=== PATIENT | male | born 1950 | race Caucasian/White ===

== ENCOUNTER 2017-03-30 09:47 | Day surgery (SDC) | payer MEDICARE, BC ==
[~2017-03-30 09:47] MED LIST: Midazolam 1 MG/ML 2 ML SDV ONE; Propofol 200 MG/20 ML SDV ONE; fentaNYL 100 MCG/2 ML SDV ONE
[2017-03-30] MEDS ORDERED: Sodium Chloride 0.9% 1,000 ML IV SCH (10:45)
[2017-03-30 12:03] VITALS: BP 162/95
--- NOTE | 2017-03-30 12:19 | OR ---
DATE OF PROCEDURE: 03/30/2017 PROCEDURE: Colonoscopy. FINDINGS: Ascending colon polyp, approximately 2 cm, completely removed using hot snare. COMPLICATIONS: None. 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 PREOPERATIVE DIAGNOSIS: Screening colonoscopy. POSTOPERATIVE DIAGNOSIS: Screening colonoscopy. RISK: Risks, benefits, alternatives, and limitations, including, but not limited to infection, bleeding, and perforation, false-positive and false-negative exams were explained to the patient, and he wished to proceed. PROCEDURE IN DETAIL: The patient was placed in left lateral decubitus position. Digital rectal exam was performed without abnormality. The scope was introduced and advanced atraumatically to the ileocecal valve. The scope was brought back to the ascending, transverse, descending colon and retroflexed. The aforementioned ascending colon polyp was first biopsied and completely removed using hot snare. No abnormalities on retroflexion. The patient tolerated the procedure well. Aldair Tripp MD /[id number]
== END 2017-03-30 12:30 | disposition home or self-care (01) ==
LOC: JP.SDS 09:47
PROVIDERS: ATTEND Surgery
DX: Z12.11 Encounter for screening for malignant neoplasm of colon (principal); D12.2 Benign neoplasm of ascending colon; Z87.19 Personal history of other diseases of the digestive system; I10 Essential (primary) hypertension; E78.2 Mixed hyperlipidemia; R10.13 Epigastric pain; F10.10 Alcohol abuse, uncomplicated; E79.0 Hyperuricemia without signs of inflammatory arthritis and tophaceous disease; R73.03 Prediabetes; Z88.1 Allergy status to other antibiotic agents; Z88.2 Allergy status to sulfonamides; Z79.899 Other long term (current) drug therapy; Z87.891 Personal history of nicotine dependence
CPT/HCPCS: 45385; J2250; J2704; J3010; J7040; 88305

== ENCOUNTER 2017-06-19 19:38 | Emergency (ER) | payer MEDICARE, BC ==
[2017-06-19 19:54] VITALS: BP 146/84
--- NOTE | 2017-06-19 20:39 | EDM.PDOC ---
ED HPI GENERAL MEDICAL PROBLEM - General Chief Complaint: Skin Complaint Stated Complaint: RASH Time Seen by Provider: 06/19/17 20:26 Source of Information: Reports: Patient, Family, RN Notes Reviewed History Limitations: Reports: No Limitations - History of Present Illness INITIAL COMMENTS - FREE TEXT/NARRATIVE: 67-year-old gentleman presents emergency department day complaint of a rash, states the rash is been ongoing for about 24 hours and continues to a fall initially had some tongue swelling and difficulty swallowing however that is resolved and now his had bumps on his chest and arms it is quite itchy and they are changing in-state as well - Related Data Allergies Allergy/AdvReac Type Severity Reaction Status Date / Time azithromycin Allergy Cannot Verified 06/19/17 19:57 Remember Sulfa (Sulfonamide Allergy Rash Verified 06/19/17 19:57 Antibiotics) Home Meds: Home Meds Ascorbate Calcium [Vitamin C] 1,000 mg PO DAILY 04/15/14 [History] Gemfibrozil 600 mg PO BID 04/15/14 [History] Lovastatin [Mevacor] 20 mg PO DAILY 04/15/14 [History] Metoprolol Succinate [Toprol XL 100mg] 100 mg PO DAILY 04/15/14 [History] Multivitamin with Minerals [Multiple Vitamin] 1 tab PO DAILY 04/15/14 [History] Omeprazole 20 mg PO Q48H 04/15/14 [History] Lisinopril/Hydrochlorothiazide [Lisinopril-Hctz 20-25 mg Tab] 1 tab PO DAILY [History] Past Medical History HEENT History: Reports: Cataract, Other (See Below) Other HEENT History: tinnitis Cardiovascular History: Reports: High Cholesterol, Hypertension Respiratory History: Reports: Bronchitis, Recurrent Gastrointestinal History: Reports: Cholelithiasis, Colon Polyp, GERD Musculoskeletal History: Reports: Gout Neurological History: Reports: None Psychiatric History: Reports: None Endocrine/Metabolic History: Reports: Obesity/BMI 30+ Hematologic History: Reports: Blood Transfusion(s) Oncologic (Cancer) History: Reports: Other (See Below) Other Oncologic History: skin CA Dermatologic History: Reports: Other (See Below) Other Dermatologic History: skin CA - Past Surgical History HEENT Surgical History: Reports: Cataract Surgery GI Surgical History: Reports: Colonoscopy Neurological Surgical History: Reports: None Oncologic Surgical History: Reports: None Social & Family History - Tobacco Use Smoking Status *Q: Never Smoker Second Hand Smoke Exposure: No - Caffeine Use Caffeine Use: Reports: Coffee - Alcohol Use Days Per Week of Alcohol Use: 7 Number of Drinks Per Day: 4 Total Drinks Per Week: 28 - Recreational Drug Use Recreational Drug Use: No ED ROS GENERAL - Review of Systems Review Of Systems: See Below Constitutional: Reports: No Symptoms Skin: Reports: Pruritis, Rash, Erythema, Urticaria Neurological: Reports: No Symptoms ED EXAM, SKIN/RASH Exam: See Below Exam Limited By: No Limitations General Appearance: Alert, WD/WN, No Apparent Distress Respiratory/Chest: No Respiratory Distress, Lungs Clear, Normal Breath Sounds, No Accessory Muscle Use Cardiovascular: Regular Rate, Rhythm, No Murmur Skin: Warm, Dry, Intact, Rash, Other (Hives) Course - Vital Signs Last Recorded V/S: Last Vital Signs Temp 98.1 F 06/19/17 20:06 Pulse 91 06/19/17 20:06 Resp 20 06/19/17 20:06 BP 146/84 H 06/19/17 20:06 Pulse Ox 97 06/19/17 20:06 Departure - Departure Time of Disposition: 20:39 Disposition: Home, Self-Care 01 Condition: Good Clinical Impression: Urticaria - Discharge Information Referrals: Migel Bustamante MD [Primary Care Provider] - Additional Instructions: Take full course of steroids, use Benadryl as needed to help control symptoms, Please followup with your primary care provider in 3-5 days if not better, please call return to the emergency department with worsening of symptoms. - Assessment/Plan Plan: Assessment Acuity = acute Site and laterality = hives Etiology = unclear etiology Manifestations = pruritus Location of injury = Home Lab values = none Plan Prednisone 20 mg once day 3 days combination of Benadryl follow-up with primary care in 3-5 days if not better Patient was in agreement with the plan all questions were answered, they were instructed to return to the emergency department or call for worsening symptoms. This note was dictated using ROSTR voice recognition software please call with any questions.
== END 2017-06-19 20:48 | disposition home or self-care (01) ==
LOC: JP.ED 19:38
DX: L50.9 Urticaria, unspecified (principal); I10 Essential (primary) hypertension; E78.00 Pure hypercholesterolemia, unspecified; K21.9 Gastro-esophageal reflux disease without esophagitis; E66.9 Obesity, unspecified; Z85.828 Personal history of other malignant neoplasm of skin; Z98.49 Cataract extraction status, unspecified eye; Z79.899 Other long term (current) drug therapy; Z88.1 Allergy status to other antibiotic agents; Z88.2 Allergy status to sulfonamides; Z68.32 Body mass index [BMI] 32.0-32.9, adult
CPT/HCPCS: 99283

== ENCOUNTER 2020-07-16 08:00 | Day surgery (SDC) | payer BC, MEDICARE ==
[2020-07-16] MEDS ORDERED: Dextrose 5%-Lactated Ringers 1,000 ML IV SCH (08:30)
[2020-07-16] MEDS ORDERED: Propofol 200 MG/20 ML SDV ONE ×2 (08:48→09:35)
[2020-07-16] MEDS ORDERED: Midazolam 1 MG/ML 2 ML SDV ONE (08:48)
[2020-07-16] MEDS ORDERED: fentaNYL 100 MCG/2 ML SDV ONE (08:48)
[2020-07-16 10:51] VITALS: BP 183/98; PULSE 86
--- NOTE | 2020-07-27 12:28 | OR ---
DATE OF PROCEDURE: 07/16/2020 SURGEON: Tani Bull MD PREOPERATIVE DIAGNOSIS: History of colon polyps. POSTOPERATIVE DIAGNOSIS: Recurrent colon polyps x2. 1. Small ascending colon polyp. 2. Larger descending colon polyp. OPERATIVE PROCEDURES: 1. Flexible colonoscopy with polypectomy by snare technique x2 ([id number]). 2. Injection of Haley Ink in the submucosa adjacent to descending colon polypectomy site ([id number]). ANESTHESIA: IV sedation. INDICATION FOR PROCEDURE: A 70-year-old presenting with a followup colonoscopy plan based on previous history of colon polyps. Potential risks including bleeding and perforation were discussed, and the patient wishes to proceed. PROCEDURE IN DETAIL: The patient was taken to the operating room and placed in a left lateral decubitus position. IV sedation was administered, after which the initial digital rectal exam was performed and was unremarkable. Colonoscope was then passed into the rectum with retroflexion revealing uncomplicated hemorrhoidal columns. Scope was then eventually passed to the level of the cecum. Prep was quite good with only small amount of liquid stool being present. A small 5 mm polyp was located in the ascending colon. This was encircled at its base and removed by means of snare technique. A larger roughly 1.5 cm polyp was then encountered in the descending colon. This was also then encircled at its base and removed. This came out in somewhat of a piecemeal fashion. The remaining base of the polypectomy site was then cauterized further to attempt to minimize chances of any local recurrence at that site and this specimen likewise at this point grasped through the biopsy channel and retrieved. Scope was then placed back up into the area of the descending colon polyp and 4 mL of Haley Ink were injected submucosally to help identify that area should the pathology report come back showing malignancy. The scope was then withdrawn and the procedure was then concluded. Assuming that we are not dealing with a malignant change in the larger of these 2 polyps, the patient should likely undergo a repeat colonoscopy in 1 year due to the fairly extensive size of the polyp removed in the descending colon. Tani Bull MD /[id number]
== END 2020-07-16 11:00 | disposition home or self-care (01) ==
LOC: JP.SDS 08:00
PROVIDERS: ATTEND Surgery
DX: Z12.11 Encounter for screening for malignant neoplasm of colon (principal); D12.4 Benign neoplasm of descending colon; K64.9 Unspecified hemorrhoids; I10 Essential (primary) hypertension; K21.9 Gastro-esophageal reflux disease without esophagitis
CPT/HCPCS: 45381; 45385; 88305; J2250; J2704; J3010; J7121

== ENCOUNTER 2021-09-09 16:13 | Emergency (ER) | payer MEDICARE ==
[2021-09-09] MEDS ORDERED: Sodium Chloride 0.9% 10 ML Syringe FLUSH PRN (16:15)
[2021-09-09] MEDS ORDERED: methylPREDNISolone Sodium Succinate 125 MG/2 ML SDV IVPUSH ONE ×2 (16:16→17:52)
[2021-09-09 16:25] VITALS: PULSE 98
--- NOTE | 2021-09-09 16:42 | EDM.PDOC ---
ED HPI GENERAL MEDICAL PROBLEM - General Chief Complaint: Allergic Reaction Stated Complaint: MEDICAL VIA [place] Time Seen by Provider: 09/09/21 16:37 Source of Information: Reports: Patient History Limitations: Reports: No Limitations - History of Present Illness INITIAL COMMENTS - FREE TEXT/NARRATIVE: 2 days ago he was started back on lisinopril. He took his dose about noon and he laid down and when he got up from the nap he had a markedly swollen tongue. He did not have hives or other signs of a allergic reaction. Onset: Today, Sudden Duration: Hour(s): Location: Reports: Face Associated Symptoms: Reports: Other (pt is not feeling sob. ) - Related Data Allergies Allergy/AdvReac Type Severity Reaction Status Date / Time azithromycin Allergy Cannot Verified 09/09/21 16:19 Remember lisinopril Allergy Swelling Verified 09/09/21 16:28 Sulfa (Sulfonamide Allergy Rash Verified 09/09/21 16:19 Antibiotics) Home Meds: Home Meds Gemfibrozil 600 mg PO BID 04/15/14 [History] Lovastatin [Mevacor] 20 mg PO DAILY 04/15/14 [History] Metoprolol Succinate [Toprol XL 100mg] 100 mg PO DAILY 04/15/14 [History] Multivitamin with Minerals [Multiple Vitamin] 1 tab PO DAILY 04/15/14 [History] Omeprazole 20 mg PO Q48H 04/15/14 [History] Lisinopril/Hydrochlorothiazide [Lisinopril-Hctz 20-25 mg Tab] 1 tab PO DAILY 06/19/17 [History] Cinnamon Bark [Cinnamon] 500 mg PO DAILY 07/14/20 [History] Potassium Chloride 10 meq PO DAILY 07/14/20 [History] Ascorbate Calcium [Vitamin C] 500 mg PO DAILY 09/09/21 [History] Digoxin 250 mcg PO DAILY 09/09/21 [History] Diltiazem [Cardizem CD] 120 mg PO DAILY 09/09/21 [History] Latanoprost/Pf [Latanoprost 0.005% Eye Drop] 1 drop EYEBOTH BEDTIME 09/09/21 [History] Magnesium Sulfate 400 mg PO BID 09/09/21 [History] Past Medical History HEENT History: Reports: Cataract, Other (See Below) Other HEENT History: tinnitis Cardiovascular History: Reports: High Cholesterol, Hypertension Respiratory History: Reports: Bronchitis, Recurrent Gastrointestinal History: Reports: Cholelithiasis, Colon Polyp, GERD Musculoskeletal History: Reports: Gout Neurological History: Reports: None Psychiatric History: Reports: None Endocrine/Metabolic History: Reports: Obesity/BMI 30+ Hematologic History: Reports: Blood Transfusion(s) Oncologic (Cancer) History: Reports: Other (See Below) Other Oncologic History: skin CA Dermatologic History: Reports: Other (See Below) Other Dermatologic History: skin CA - Past Surgical History HEENT Surgical History: Reports: Cataract Surgery GI Surgical History: Reports: Colonoscopy Neurological Surgical History: Reports: None Social & Family History - Family History Family Medical History: No Pertinent Family History - Tobacco Use Tobacco Use Status *Q: Never Tobacco User - Caffeine Use Caffeine Use: Reports: None - Alcohol Use Days Per Week of Alcohol Use: 3 Number of Drinks Per Day: 3 Total Drinks Per Week: 9 - Recreational Drug Use Recreational Drug Use: No ED ROS ALLERGIC REACTION - Review of Systems Review Of Systems: See Below Constitutional: Reports: No Symptoms HEENT: Reports: Other (marked swelling of his tongue. ) Respiratory: Reports: No Symptoms Cardiovascular: Reports: No Symptoms Endocrine: Reports: No Symptoms GI/Abdominal: Reports: No Symptoms : Reports: No Symptoms Musculoskeletal: Reports: No Symptoms Skin: Reports: No Symptoms ED EXAM GENERAL NO PERIP PULSE - Physical Exam Exam: See Below Text/Narrative:: pt arrived with a markedly swollen tongue. He was restarted on lisinopril 2 days ago. He took his dose anoon. laid down for a nap and got up with a swollen tongue. Exam Limited By: No Limitations General Appearance: Alert, Anxious, Moderate Distress, Other (pt does not feel sob. ) Ears: Normal TMs Nose: Normal Inspection Throat/Mouth: Other ( tongue is parkedly swolen distally) Head: Atraumatic Neck: Normal Inspection Cardiovascular: Regular Rate, Rhythm GI/Abdominal: Soft, Non-Tender (Male) Exam: Deferred Rectal (Males) Exam: Deferred Back Exam: Normal Inspection Extremities: Normal Inspection Course - Vital Signs Last Recorded V/S: Last Vital Signs Temp 36.8 C 09/09/21 16:22 Pulse 98 09/09/21 16:22 Resp 21 H 09/09/21 17:41 BP 133/65 09/09/21 17:41 Pulse Ox 92 L 09/09/21 17:41 - Orders/Labs/Meds Orders: Active Orders 24 hr Category Date Time Status Sodium Chloride 0.9% [Saline Flush] Med 09/09/21 16:15 Active 10 ml FLUSH ASDIRECTED PRN Saline Lock Insert [OM.PC] Routine Oth 09/09/21 16:15 Ordered Medication Orders Sodium Chloride (Sodium Chloride 0.9% 10 Ml Syringe) 10 ml FLUSH ASDIRECTED PRN PRN Reason: Keep Vein Open Last Admin: 09/09/21 16:36 Dose: 10 ml Documented by: SALVADOR Labs: Laboratory Tests 09/09/21 09/09/21 Range/Units 16:15 16:15 WBC 12.4 H (4.5-11.0) K/uL RBC 3.85 L (4.30-5.90) M/uL Hgb 12.8 (12.0-15.0) g/dL Hct 36.5 L (40.0-54.0) % MCV 95 (80-98) fL MCH 33 H (27-31) pg MCHC 35 (32-36) % Plt Count 238 (150-400) K/uL Neut % (Auto) 59.7 (36-66) % Lymph % (Auto) 25.6 (24-44) % Victoria % (Auto) 11.0 H (2-6) % Eos % (Auto) 3.4 (2-4) % Baso % (Auto) 0.3 (0-1) % Sodium 135 L (140-148) mmol/L Potassium 3.1 L (3.6-5.2) mmol/L Chloride 100 (100-108) mmol/L Carbon Dioxide 20 L (21-32) mmol/L Anion Gap 18.1 H (5.0-14.0) mmol/L BUN 11 (7-18) mg/dL Creatinine 1.0 (0.8-1.3) mg/dL Est Cr Clr Drug Dosing 64.60 mL/min Estimated GFR (MDRD) > 60 (>60) Glucose 162 H (74-106) mg/dL Calcium 8.7 (8.5-10.1) mg/dL Meds: Medications Generic Name Dose Route Start Last Admin Trade Name Freq PRN Reason Stop Dose Admin Sodium Chloride 10 ml 09/09/21 16:15 09/09/21 16:36 Sodium Chloride 0.9% 10 Ml Syringe FLUSH 10 ml ASDIRECTED PRN Administration Keep Vein Open Discontinued Medications Generic Name Dose Route Start Last Admin Trade Name Jasmin PRN Reason Stop Dose Admin Diphenhydramine HCl 25 mg 09/09/21 16:53 09/09/21 17:01 Diphenhydramine 50 Mg/Ml Sdv IVPUSH 09/09/21 16:54 25 mg ONETIME ONE Administration Methylprednisolone Sodium Succinate 125 mg 09/09/21 16:16 09/09/21 16:33 Methylprednisolone Sodium Succinate 125 Mg/2 Ml Sdv IVPUSH 09/09/21 16:17 125 mg ONETIME ONE Administration Departure - Departure Time of Disposition: 17:53 Disposition: Home, Self-Care 01 Condition: Fair Clinical Impression: Angioedema, Hypokalemia - Discharge Information Referrals: Migel Bustamante MD [Primary Care Provider] - Forms: ED Department Discharge Care Plan Goals: use iced solutions to help with swelling, at 9 pm take benadryl 50 mg, stay awake tonight until swelling is better. stop lisinopril. restart hydraazine as previously ordered. Appt with Dr Bustamante in next few days to reevaluate bp meds. Sepsis Event Note (ED) - Evaluation Sepsis Screening Result: No Definite Risk - Focused Exam Vital Signs: Vital Signs Temp Pulse Resp BP Pulse Ox 09/09/21 17:41 21 H 133/65 92 L 09/09/21 17:11 20 142/68 H 92 L 09/09/21 16:41 24 H 147/58 H 93 L 09/09/21 16:22 36.8 C 98 21 H 185/70 H 97 09/09/21 16:17 36.8 C 98 185/70 H 97 - My Orders Last 24 Hours: My Active Orders 09/09/21 16:15 Sodium Chloride 0.9% [Saline Flush] 10 ml FLUSH ASDIRECTED PRN Saline Lock Insert [OM.PC] Routine - Assessment/Plan Last 24 Hours: My Active Orders 09/09/21 16:15 Sodium Chloride 0.9% [Saline Flush] 10 ml FLUSH ASDIRECTED PRN Saline Lock Insert [OM.PC] Routine
[2021-09-09] MEDS ORDERED: diphenhydrAMINE 50 MG/ML SDV IVPUSH ONE (16:53)
[2021-09-09 17:41] VITALS: BP 133/65
== END 2021-09-09 18:15 | disposition home or self-care (01) ==
LOC: JP.ED 16:13
DX: T78.3XXA Angioneurotic edema, initial encounter (principal); E87.6 Hypokalemia; E78.00 Pure hypercholesterolemia, unspecified; I10 Essential (primary) hypertension; K21.9 Gastro-esophageal reflux disease without esophagitis; E66.9 Obesity, unspecified; Z68.29 Body mass index [BMI] 29.0-29.9, adult; Z88.1 Allergy status to other antibiotic agents; Z88.8 Allergy status to other drugs, medicaments and biological substances; Z88.2 Allergy status to sulfonamides; Z79.899 Other long term (current) drug therapy
CPT/HCPCS: 36415; 80048; 85025; 96374; 96375; 96376; 99285; J1200; J2930

== ENCOUNTER 2021-09-19 17:54 | Emergency (ER) | payer MEDICARE ==
[2021-09-19 18:31] VITALS: BP 162/75; PULSE 83
[2021-09-19] MEDS ORDERED: methylPREDNISolone Sodium Succinate 125 MG/2 ML SDV IM ONE (18:59)
--- NOTE | 2021-09-19 19:00 | EDM.PDOC ---
ED HPI GENERAL MEDICAL PROBLEM - General Chief Complaint: Allergic Reaction Stated Complaint: FACE IS SWOLLEN Time Seen by Provider: 09/19/21 18:55 Source of Information: Reports: Patient, Family History Limitations: Reports: No Limitations - History of Present Illness INITIAL COMMENTS - FREE TEXT/NARRATIVE: 71-year-old male who was developed angioedema of the right buccal mucosa and left lower lip. He had the same instance within the last 2 weeks, his tongue was more involved that time and he stopped his lisinopril. He has not had an episode until 3 hours ago when he woke from a nap he noticed the swelling started. He took 50 mg of Benadryl and came in. It is still significantly swollen around the left cheek, it is nontender but feels "tight". No difficulty breathing, the left lower lip is swollen but the tongue is not involved at this time. Onset: Sudden Duration: Hour(s): (3 hours) Location: Reports: Face (Left face and left lower lip) Quality: Reports: Pressure Worsens with: Reports: None Associated Symptoms: Reports: No Other Symptoms - Related Data Allergies Allergy/AdvReac Type Severity Reaction Status Date / Time azithromycin Allergy Cannot Verified 09/19/21 18:58 Remember lisinopril Allergy Swelling Verified 09/19/21 18:58 Sulfa (Sulfonamide Allergy Rash Verified 09/19/21 18:58 Antibiotics) Home Meds: Home Meds Gemfibrozil 600 mg PO BID 04/15/14 [History] Lovastatin [Mevacor] 20 mg PO DAILY 04/15/14 [History] Metoprolol Succinate [Toprol XL 100mg] 100 mg PO DAILY 04/15/14 [History] Multivitamin with Minerals [Multiple Vitamin] 1 tab PO DAILY 04/15/14 [History] Omeprazole 20 mg PO Q48H 04/15/14 [History] Cinnamon Bark [Cinnamon] 500 mg PO DAILY 07/14/20 [History] Potassium Chloride 10 meq PO DAILY 07/14/20 [History] Ascorbate Calcium [Vitamin C] 500 mg PO DAILY 09/09/21 [History] Digoxin 250 mcg PO DAILY 09/09/21 [History] Diltiazem [Cardizem CD] 120 mg PO DAILY 09/09/21 [History] Latanoprost/Pf [Latanoprost 0.005% Eye Drop] 1 drop EYEBOTH BEDTIME 09/09/21 [History] Magnesium Sulfate 400 mg PO BID 09/09/21 [History] Past Medical History HEENT History: Reports: Cataract, Other (See Below) Other HEENT History: tinnitis Cardiovascular History: Reports: High Cholesterol, Hypertension Respiratory History: Reports: Bronchitis, Recurrent Gastrointestinal History: Reports: Cholelithiasis, Colon Polyp, GERD Musculoskeletal History: Reports: Gout Neurological History: Reports: None Psychiatric History: Reports: None Endocrine/Metabolic History: Reports: Obesity/BMI 30+ Hematologic History: Reports: Blood Transfusion(s) Oncologic (Cancer) History: Reports: Other (See Below) Other Oncologic History: skin CA Dermatologic History: Reports: Other (See Below) Other Dermatologic History: skin CA - Past Surgical History HEENT Surgical History: Reports: Cataract Surgery GI Surgical History: Reports: Colonoscopy Neurological Surgical History: Reports: None Social & Family History - Family History Family Medical History: No Pertinent Family History - Caffeine Use Caffeine Use: Reports: None ED ROS ALLERGIC REACTION - Review of Systems Review Of Systems: See Below Constitutional: Denies: Fever, Chills HEENT: Denies: Throat Pain, Throat Swelling Respiratory: Denies: Shortness of Breath Cardiovascular: Denies: Chest Pain GI/Abdominal: Denies: Nausea, Vomiting Skin: Reports: Other (Has some hyperemia of the forearms after rubbing her lotion to reduce skin cancer changes.) Neurological: Reports: No Symptoms ED EXAM GENERAL NO PERIP PULSE - Physical Exam Exam: See Below Exam Limited By: No Limitations General Appearance: Alert, No Apparent Distress Eye Exam: Bilateral Eye: Normal Inspection Throat/Mouth: Other (Significant edema is present in the left buccal mucosa, the left face and to the left lower lip. The tongue and posterior pharynx are not involved) Head: Atraumatic Neck: Supple, Non-Tender Respiratory/Chest: Lungs Clear Cardiovascular: Regular Rate, Rhythm GI/Abdominal: Soft, Non-Tender Course - Vital Signs Last Recorded V/S: Last Vital Signs Temp 97.9 F 09/19/21 18:54 Pulse 83 09/19/21 18:54 Resp 16 09/19/21 18:54 BP 162/75 H 09/19/21 18:54 Pulse Ox 96 09/19/21 18:54 - Orders/Labs/Meds Meds: Medications Discontinued Medications Generic Name Dose Route Start Last Admin Trade Name Freq PRN Reason Stop Dose Admin Methylprednisolone Sodium Succinate 125 mg 09/19/21 18:59 09/19/21 19:39 Methylprednisolone Sodium Succinate 125 Mg/2 Ml Sdv IM 09/19/21 19:00 125 mg ONETIME ONE Administration - Re-Assessments/Exams Free Text/Narrative Re-Assessment/Exam: 09/19/21 19:07 This patient is experiencing another episode of angioedema. He is not on any anti-inflammatories and has stopped his lisinopril. He is not on antibiotics. He was given 125 mg of IM Solu-Medrol and will be discharged with a Medrol Dosepak but may need to talk to his doctor about testing. We do not have danazol available for treatment. He will return if worsening. Departure - Departure Time of Disposition: 19:44 Disposition: Home, Self-Care 01 Clinical Impression: Angioedema Qualifiers: Encounter type: initial encounter Qualified Code(s): T78.3XXA - Angioneurotic edema, initial encounter - Discharge Information Instructions: Allergies, Adult Referrals: Migel Bustamante MD [Primary Care Provider] - Forms: ED Department Discharge Care Plan Goals: Start Medrol Dosepak tomorrow morning and take until swelling has resolved even if it is only a few doses, your swelling may be gone by tomorrow. Consider an appointment at the clinic to get testing to see if they can determine what is causing this. Cold temperatures can help reduce swelling such as ice packs to the face or drinks with crushed ice. Sepsis Event Note (ED) - Evaluation Sepsis Screening Result: No Definite Risk - Focused Exam Vital Signs: Vital Signs Temp Pulse Resp BP Pulse Ox 09/19/21 18:54 97.9 F 83 16 162/75 H 96 09/19/21 18:27 97.9 F 83 16 162/75 H 96
== END 2021-09-19 19:50 | disposition home or self-care (01) ==
LOC: JP.ED 17:54
DX: T78.3XXA Angioneurotic edema, initial encounter (principal); M10.9 Gout, unspecified; K21.9 Gastro-esophageal reflux disease without esophagitis; E66.9 Obesity, unspecified; Z68.29 Body mass index [BMI] 29.0-29.9, adult; Z88.2 Allergy status to sulfonamides; Z88.1 Allergy status to other antibiotic agents; Z88.8 Allergy status to other drugs, medicaments and biological substances; Z79.899 Other long term (current) drug therapy
CPT/HCPCS: 96372; 99283; J2930

== ENCOUNTER 2024-06-23 16:45 | Emergency (ER) | payer OTHER, MEDICARE ==
[2024-06-23 18:31] LABS: BASOPHILS ABSOLUTE AUTO 0.06 K/uL (0.00-0.10); BASOPHILS PERCENT AUTO 0.6 % (0.1-1.3); EOSINOPHILS ABSOLUTE AUTO 0.02 K/uL (0.00-0.40); EOSINOPHILS PERCENT AUTO 0.2 % (0.0-5.4); HEMATOCRIT 39.9 % (38.4-49.7); HEMOGLOBIN 14.3 g/dL (12.9-16.9); IMMATURE GRAN ABSOLUTE AUTO 0.03 K/uL (0.00-0.23); IMMATURE GRAN PERCENT AUTO 0.3 % (0.0-0.7); LYMPHOCYTES ABSOLUTE AUTO 0.94 K/uL (0.8-3.3); LYMPHOCYTES PERCENT AUTO 9.8 % (11.4-47.7); MEAN CORPUSCULAR HEMOGLOBIN 31.9 pg (31.6-35.5); MEAN CORPUSCULAR HGB CONC 35.8 g/dL (31.6-35.5); MEAN CORPUSCULAR VOLUME 89.1 fL (81.4-99.0); MONOCYTES ABSOLUTE AUTO 1.55 K/uL (0.20-0.90); MONOCYTES PERCENT AUTO 16.1 % (3.3-12.6); NEUTROPHILS ABSOLUTE AUTO 7.04 K/uL (1.0-7.6); PLATELET COUNT,PLT 194 K/uL (130-375); RED BLOOD CELL COUNT 4.48 M/uL (4.14-5.76); WHITE BLOOD CELL COUNT,WBC 9.6 K/uL (3.2-11.0)
[2024-06-23 18:50] LABS: APPEARANCE,URINE CLEAR (CLEAR); BACTERIA,URINE FEW; BILIRUBIN,URINE NEGATIVE (NEGATIVE); COLOR,URINE YELLOW (YELLOW); EPITHELIAL CELLS,URINE RARE; GLUCOSE,URINE NEGATIVE (NEGATIVE); KETONES,URINE NEGATIVE (NEGATIVE); LEUKOCYTE ESTERASE,URINE NEGATIVE (NEGATIVE); MUCUS,URINE FEW; NITRITE,URINE NEGATIVE (NEGATIVE); OCCULT BLOOD,URINE TRACE-INTACT (NEGATIVE); PH,URINE 7.5 (5.0-8.0); PROTEIN,URINE >=300 mg/dL (NEGATIVE); UROBILINOGEN,URINE 0.2 EU/dL (0.2-1.0); WBC,URINE 0-5 (0-5)
[2024-06-23 18:51] LABS: AMORPHOUS SEDIMENT,URINE NOT SEEN
[2024-06-23 18:52] LABS: BLOOD UREA NITROGEN,BUN 15 mg/dL (7-18); CALCIUM 9.7 mg/dL (8.5-10.1); CARBON DIOXIDE,CO2 21 mmol/L (21-32); CHLORIDE,CL 100 mmol/L (100-108); CREATININE 1.2 mg/dL (0.8-1.3); ESTIMATED GFR 63 mL/min (>60); GLUCOSE RANDOM 125 mg/dL (74-106); POTASSIUM,K 3.7 mmol/L (3.6-5.2); SODIUM,NA 136 mmol/L (140-148)
[2024-06-23 18:56] LABS: ANION GAP 18.7 mmol/L (5.0-14.0)
[2024-06-23] MEDS: Sodium Chloride 0.9% 1,000 ML IV SCH ×2 (19:02→20:56)
[2024-06-23 19:15] LABS: INFLUENZA A NAA NEGATIVE (NEGATIVE); INFLUENZA B NAA NEGATIVE (NEGATIVE); RESPIRATORY SYNCYTIAL VIR NAA NEGATIVE (NEGATIVE)
[2024-06-23 19:18] LABS: CORONAVIRUS COVID-19 NAA POSITIVE (NEGATIVE)
[2024-06-23] MEDS: Acetaminophen 500 MG Tab PO ONE (19:30)
[2024-06-23] MEDS: cefTRIAXone 2 GM in Sodium Chloride 0.9% 50 ML IV ONE (20:23)
[2024-06-23 22:06] VITALS: BP 131/62; PULSE 104
== END 2024-06-23 22:05 | disposition home or self-care (01) ==
LOC: JP.ED 16:45
DX: U07.1 COVID-19 (principal); I10 Essential (primary) hypertension; E78.00 Pure hypercholesterolemia, unspecified; E66.9 Obesity, unspecified; Z88.1 Allergy status to other antibiotic agents; Z88.2 Allergy status to sulfonamides; Z88.8 Allergy status to other drugs, medicaments and biological substances; Z79.899 Other long term (current) drug therapy; Z68.31 Body mass index [BMI] 31.0-31.9, adult
CPT/HCPCS: 0241U; 36415; 71046; 80048; 81001; 83605; 84145; 85025; 87040; 93005; 96360; 96361; 99284; A9270; J7030

== ENCOUNTER 2024-07-02 15:20 | Emergency (ER) | payer OTHER, MEDICARE ==
[2024-07-02 16:09] VITALS: BP 171/87
[2024-07-02] MEDS: cloNIDine 0.1 MG Tab PO ONE (16:09)
[2024-07-02 16:15] VITALS: PULSE 69
== END 2024-07-02 18:32 | disposition home or self-care (01) ==
LOC: JP.ED 15:20
DX: I10 Essential (primary) hypertension (principal); E78.00 Pure hypercholesterolemia, unspecified; K21.9 Gastro-esophageal reflux disease without esophagitis; E66.9 Obesity, unspecified; Z79.899 Other long term (current) drug therapy; Z79.82 Long term (current) use of aspirin; Z88.2 Allergy status to sulfonamides; Z88.1 Allergy status to other antibiotic agents; Z88.8 Allergy status to other drugs, medicaments and biological substances
CPT/HCPCS: 99283; A9270